=== PATIENT | female | born 1995 | race Caucasian/White ===

== ENCOUNTER 2018-03-21 12:37 | Emergency (ER) | payer OTHER ==
[~2018-03-21] VITALS: Ht 157.5 cm; Wt 95.3 kg
[2018-03-21] MEDS ORDERED: HYDROCODONE/APAP 5MG-325MG TAB PO ONE (13:00)
[2018-03-21] MEDS ORDERED: CYMBALTA30 MG PO (13:32)
[2018-03-21] MEDS ORDERED: ADDERALL XR 3030 MG PO (13:32)
[2018-03-21] MEDS ORDERED: SYNTHROID100 MCG PO (13:32)
--- NOTE | 2018-03-21 14:13 | Diagnostic Imaging Report ---
History: Headaches Comparison studies: None Technique: Axial images were obtained from the skull base to the vertex. Coronal and sagittal reconstructions obtained from the axial data. Findings: Scalp/skull: No abnormalities. No fractures, blastic or lytic lesions. Extra-axial spaces: No masses. No fluid collections. Brain sulci: Appropriate for age. Ventricles: Normal in size and configuration. No hydrocephalus. Parenchyma: No abnormal densities. No masses, hemorrhage, acute or chronic cortical vascular insults. Sellar/suprasellar region: No abnormalities Craniocervical junction: Patent foramen magnum. No Chiari one malformation. IMPRESSION: No abnormalities. Signed by: Dr. Dmitriy Jack M.D. on 03/21/2018 2:09 PM
[2018-03-21 14:31] VITALS: BP 126/93
--- OUTSIDE RECORDS SUMMARY | 2018-06-30 14:23 | XMS REPORT ---
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 Allergies, Adverse Reactions, Alerts This patient has no known allergies or adverse reactions. Medications This patient has no known medications. Results Test Description Test Time Test Comments Text Results Atomic Results Result Comments MRI ANKLE LEFT WO 2018-06-09 12:26:00 [place] [address] Patient Name: ROSI RODAS MR #: [id number] : 1995 Age/Sex: 22/F Req #: [id number] Adm Physician: Ordered by: LORENA EVANS DO Report #: [id number] Location: MRI Room/Bed: Procedure: [id number] MRI/MRI ANKLE LEFT WO Exam Date: Exam Time: REPORT STATUS: Signed TECHNIQUE: Magnetic resonance imaging of the left ANKLE was performed WITHOUT injected contrast. COMPARISON: None available. HISTORY: ankle pain FINDINGS: LIGAMENTS : Medial Complex: Intact Lateral Complex: Intact, including the tibiofibular ligaments. TENDONS: Medial: Intact Lateral: Intact Anterior: Intact Achilles: Intact BONES: No focal or infiltrative bone marrow replacing abnormality. No acute fracture or osteonecrosis. JOINTS: Cartilage: No focal defect is identified involving the tibiotalar joint. Other: Fluid within the joints is within physiologic limits. SOFT TISSUES: Otherwise, unremarkable. IMPRESSION: No acute osseous, ligamentous, or tendinous abnormality. Signed by: Dr. Arthur Anguiano M.D. on 06/09/2018 12:28 PM Dictated By: ARTHUR ANGUIANO MD 27 COPY TO: LORENA EVANS DO CT BRAIN WO 2018-03-21 14:08:00 [place] [address] Patient Name: ROSI RODAS MR #: [id number] : 1995 Age/Sex: 22/F Req #: [id number] Adm Physician: Ordered by: BLANKA MCKEON MD Report #: [id number] Location: ER Room/Bed: Procedure: [id number] CT/CT BRAIN WO Exam Date: Exam Time: REPORT STATUS: Signed History: Headaches Comparison studies: None Technique: Axial images were obtained from the skull base to the vertex. Coronal and sagittal reconstructions obtained from the axial data. Findings: Scalp/skull: No abnormalities. No fractures, blastic or lytic lesions. Extra-axial spaces: No masses. No fluid collections. Brain sulci: Appropriate for age. Ventricles: Normal in size and configuration. No hydrocephalus. Parenchyma: No abnormal densities. No masses, hemorrhage, acute or chronic cortical vascular insults. Sellar/suprasellar region: No abnormalities Craniocervical junction: Patent foramen magnum. No Chiari one malformation. IMPRESSION: No abnormalities. Signed by: Dr. Dmitriy Jack M.D. on 2017 2:09 PM Dictated By: DMITRIY JACK MD, MD 08 Transcribed By: MARILYN on 03/21/181408 COPY TO: BLANKA MCKEON MD CT MAX FAC/PARANASAL W [place] [address] Patient Name: ROSI RODAS MR #: [id number] : 1995 Age/Sex: 21/F Req #: [id number] Adm Physician: Ordered by: YANETH JUNIOR MD Report #: [id number] Location: CT Room/Bed: Procedure: [id number] CT/CT MAX FAC/PARANASAL W Exam Date: 09/02/17 Exam Time: 1255 REPORT STATUS: Signed Examination: CT Orbits And Paranasal Sinuses with Contrast History:Left eye pain Comparison studies:None Technique: Axial images were obtained through the orbits without contrast. Coronal and sagittal images reconstructed from the axial data. Intravenous contrast: None. Findings: Globes: In the anterior left orbit, there is a 2 cm x 0.2 cm (transverse by anteroposterior dimension ) rim-enhancing lesion, concerning for an abscess. There is no intraconal or extraconal extension of the abscess. There is associated hyperenhancement of the left lacrimal gland. Intact. The anterior and posterior chambers are clear. The lenses are well visualized. Optic nerves: Normal in size and symmetric. Extraocular muscles: Normal in size and symmetric. Intraconal abnormalities: None. Bones: No abnormalities. Paranasal sinuses: Clear. Soft tissues: No abnormalities. IMPRESSION: 1. Anterior left orbital abscess with associated hyperenhancement of the lacrimal gland, which maybe reactive to adjacent infection. 2. No intraconal or extraconal extension of the abscess. 3. Clear paranasal sinuses. 4. No dental caries. Signed by: Dr. Layne Aguiar M.D. on 09/02/2017 2:31 PM Dictated By: LAYNE VANN MD 1431 Transcribed By: MARILYN on 09/02/17 1431 COPY TO: YANETH JUNIOR MD CT ORBIT/SELLA/PF W [place] [address] Patient Name: ROSI ROADS MR #: [id number] : 1995 Age/Sex: 21/F Req #: [id number] Adm Physician: Ordered by: YANETH JUNIOR MD Report #: [id number] Location: CT Room/Bed: Procedure: [id number] CT/CT ORBIT/SELLA/PF W Exam Date: 09/02/17 Exam Time : 1255 REPORT STATUS: Signed Examination: CT Orbits And Paranasal Sinuses with Contrast History:Left eye pain Comparison studies:None Technique: Axial images were obtained through the orbits without contrast. Coronal and sagittal images reconstructed from the axial data. Intravenous contrast: None. Findings: Globes: In the anterior left orbit, there is a 2 cm x 0.2 cm (transverse by anteroposterior dimension) rim-enhancing lesion, concerning for an abscess. There is no intraconal or extraconal extension of the abscess. There is associated hyperenhancement of the left lacrimal gland. Intact. The anterior and posterior chambers are clear. The lenses are well visualized. Optic nerves: Normal in size and symmetric. Extraocular muscles: Normal in size and symmetric. Intraconal abnormalities: None. Bones: No abnormalities. Paranasal sinuses: Clear. Soft tissues: No abnormalities. IMPRESSION: 1. Anterior left orbital abscess with associated hyperenhancement of the lacrimal gland, which maybe reactive to adjacent infection. 2. No intraconal or extraconal extension of the abscess. 3. Clear paranasal sinuses. 4. No dental caries. Signed by: Dr. Lyane Aguiar M.D. on 09/02/2017 2:31 PM Dictated By: LAYNE VANN MD 1431 Transcribed By: MARILYN on 09/02/17 1431 COPY TO: YANETH JUNIOR MD
== END 2018-03-21 14:40 | disposition home or self-care (01) ==
LOC: ER 12:37
DX: G43.909 Migraine, unspecified, not intractable, without status migrainosus (principal); R07.89 Other chest pain; F41.9 Anxiety disorder, unspecified
CPT/HCPCS: 70450; 81025; 93005; 99283